=== PATIENT | male | born 1945 | race Caucasian/White ===

== ENCOUNTER 2019-08-01 10:41 | Day surgery (SDC) | payer MEDICARE, OTHER ==
[2019-07-31 11:21] LABS: EOSINOPHILS # (AUTO) 0.3 X10'3 (0-0.9); MEAN CORPUSCULAR HEMOGLOBIN 33.6 PG (27.0-31.0); NEUTROPHILS # (AUTO) 2.9 X10'3 (1.8-7.7); PRE OP HEMOGLOBIN 13.1 g/dL (14.0-17.9)
[2019-07-31 11:23] LABS: BASOPHILS % (AUTO) 0.3 % (0-1); EOSINOPHILS % (AUTO) 2.5 % (0-6); LYMPHOCYTES # (AUTO) 9.6 X10'3 (1.1-4.8); LYMPHOCYTES % (AUTO) 72.8 % (21-51); MEAN CORPUSCULAR HGB CONC 34.1 g/dL (33.0-36.5); MEAN CORPUSCULAR VOLUME 98.6 FL (78-98); MONOCYTES # (AUTO) 0.3 X10'3 (0-0.9); MONOCYTES % (AUTO) 2.2 % (2-12); NEUTROPHILS % (AUTO) 22.2 % (42-75); PRE OP HEMATOCRIT 38.4 % (42.0-52.0); PRE OP PLATELET COUNT 172 X10'3 (140-440); RED CELL DISTRIBUTION WIDTH 14.1 % (11.5-14.5)
[2019-07-31 11:27] LABS: ALBUMIN 2.9 G/DL (3.4-5.0); ALBUMIN/GLOBULIN RATIO 0.9 (1.1-1.5); ALKALINE PHOSPHATASE 105 IU/L (46-116); BLOOD UREA NITROGEN 13 MG/DL (7-18); BUN/CREATININE RATIO 16.3 (5.4-32.0); CHLORIDE 108 MMOL/L (99-107); PRE OP ALT 12 U/L (30-65); PRE OP ANION GAP 4 (8-16); PRE OP AST 18 U/L (10-37); PRE OP BILIRUB, TOTAL 0.3 MG/DL (0.0-1.0); PRE OP GLUCOSE 79 MG/DL (70-104); PRE OP POTASSIUM 4.4 MMOL/L (3.4-5.1); PRE OP SODIUM 140 MMOL/L (135-145); TOTAL CARBON DIOXIDE 27.9 MMOL/L (24-32); TOTAL PROTEIN 6.2 G/DL (6.4-8.2); eGFR > 90 ML/MIN
[2019-07-31 12:35] LABS: NUCLEATED RED BLOOD CELLS 1 /100WBC (0-0); TOTAL CELLS COUNTED 100
[2019-07-31 12:38] LABS: PLATELET ESTIMATE NORMAL; SMUDGE CELLS 2+
[2019-08-01] VITALS (10 sets, daily range): BP systolic 125–144; BP diastolic 58–78
[~2019-08-01] VITALS: Ht 190.5 cm; Wt 83.9 kg
[~2019-08-01 10:41] MED LIST: ASPI81TA52 PO; ATOR10TA70 PO; AZAT50TA7 PO; CLOP75TA35 PO; DOCUMENT DATE & TIME OF BETA-BLOCKER PO ONE; GLUC-95 PO; LEVO75TA7 PO; METO-384 PO; MULT-1141 PO; PANT40TA4 PO; TACR1CAP28 PO; TRIA0.2585 PO; cefazolin/dext.iso 2gm/50ml 50 ML IV ONE; famotidine 20mg tablet PO ONE; ringers solution, lacted 1,000 ML IV SCH
[2019-08-01] MEDS ORDERED: BUPIVAcaine/PF 2.5 mg/ml (0.25%) 30ml vial ONE (12:43)
[2019-08-01] MEDS ORDERED: LIDOcaine 0.5% (5mg/ml) 50ml vial ONE (14:03)
[2019-08-01] MEDS ORDERED: fentaNYL/PF 50MCG/1 ML 2ML syringe ONE (14:05)
[2019-08-01] MEDS ORDERED: MIDAZolam 1mg/ml 10ml vial ONE (14:05)
--- NOTE | 2019-08-01 14:10 | NUR ---
PT HAS BILATERAL LOWER LEG PROSTHESES, HIS ACTUAL WEIGHT IS 80KG AND HEIGHT IS 5'2" Addendum: 08/01/19 at 1432 by Elana Khoury RN Amended: Links added.
[2019-08-01] MEDS ORDERED: ringers solution, lacted 1,000 ML IV SCH (14:33)
[2019-08-01] MEDS ORDERED: fentaNYL/PF 50MCG/1 ML 2ML syringe IV PRN ×2 (14:35)
[2019-08-01] MEDS ORDERED: hydrALAZINE 20mg/ml inj. IV PRN (14:35)
[2019-08-01] MEDS ORDERED: ondansetron/PF 4mg/2ml inj IV PRN (14:35)
[2019-08-01] MEDS ORDERED: labetalol 20mg/4ml (5mg/ml) syringe IV PRN (14:35)
[2019-08-01] MEDS ORDERED: morphine 4 MG/ML inj SYRINge IV PRN (14:35)
[2019-08-01] MEDS ORDERED: morphine 2 MG/ML inj. syringe IV PRN (14:35)
--- NOTE | 2019-08-01 14:49 | NUR ---
Received from OR via [facility], accompanied by Anesthesiologist CITLALY and report given by Anesthesiolgist. PT DROWSY, OXYGENATING WELL ON 10 LPM O2 VIA MASK, NO RESP DISTRESS NOTED. DENIES NAUSEA OR PAIN AT THIS TIME, HAD A DANA BLOCK TO R HAND. BULKY DSG WITH RUSSELL BANDAGE, CDI. GOOD MOTION IN REMAINING FINGERS ON R HAND. VSS.
--- NOTE | 2019-08-01 16:19 | NUR ---
PT HAS NO PAIN, VSS. TOLERATING PO FLUIDS WELL. DC INSTRUCTIONS EXPLAINED TO PT AND HIS , THEY VERBALIZED UNDERSTANDING. DCD IN STABLE CONDITION, TAKEN TO CAR VIA WC.
== END 2019-08-01 16:19 | disposition home or self-care (01) ==
LOC: PAS 10:41
PROVIDERS: ATTEND Orthopaedic Surgery Hand Surgery
DX: M86.641 Other chronic osteomyelitis, right hand (principal); E11.52 Type 2 diabetes mellitus with diabetic peripheral angiopathy with gangrene; I96 Gangrene, not elsewhere classified; I25.10 Atherosclerotic heart disease of native coronary artery without angina pectoris; I10 Essential (primary) hypertension; Z98.890 Other specified postprocedural states; Z89.512 Acquired absence of left leg below knee; Z89.511 Acquired absence of right leg below knee; Z95.5 Presence of coronary angioplasty implant and graft; Z79.899 Other long term (current) drug therapy; Z72.89 Other problems related to lifestyle
CPT/HCPCS: 26951; 36415; 80053; 82948; 85025; 93005; J2001; J2250; J3010; J3490; J7120; A4618; A6446; A6449; A7000

== ENCOUNTER 2020-07-09 06:28 | Day surgery (SDC) | payer MEDICARE, OTHER ==
[2020-07-05 10:44] LABS: MEAN CORPUSCULAR HGB CONC 33.7 g/dL (33.0-36.5); MONOCYTES # (AUTO) 0.2 X10'3 (0-0.9); NEUTROPHILS # (AUTO) 1.3 X10'3 (1.8-7.7); RED BLOOD COUNT 3.49 X10'6 (4.70-6.10)
[2020-07-05 10:45] LABS: BASOPHILS % (AUTO) 0.2 % (0-1); EOSINOPHILS # (AUTO) 0.4 X10'3 (0-0.9); EOSINOPHILS % (AUTO) 3.1 % (0-6); LYMPHOCYTES # (AUTO) 11.9 X10'3 (1.1-4.8); LYMPHOCYTES % (AUTO) 86.2 % (21-51); MEAN CORPUSCULAR HEMOGLOBIN 34.4 PG (27.0-31.0); MEAN CORPUSCULAR VOLUME 101.9 FL (78-98); MONOCYTES % (AUTO) 1.4 % (2-12); NEUTROPHILS % (AUTO) 9.1 % (42-75); PRE OP HEMATOCRIT 35.6 % (42.0-52.0); PRE OP PLATELET COUNT 145 X10'3 (140-440); RED CELL DISTRIBUTION WIDTH 13.7 % (11.5-14.5)
[2020-07-05 10:58] LABS: PRE OP INR 1.1 INR; PRE OP PROTIME 11.3 SECONDS (9.0-12.0)
[2020-07-05 10:59] LABS: ALBUMIN 3.1 G/DL (3.4-5.0); ALBUMIN/GLOBULIN RATIO 1.1 (1.1-1.5); ALKALINE PHOSPHATASE 110 IU/L (46-116); BLOOD UREA NITROGEN 14 MG/DL (7-18); BUN/CREATININE RATIO 18.9 (5.4-32.0); CALCIUM 8.6 MG/DL (8.5-10.1); CHLORIDE 109 MMOL/L (99-107); CREATININE 0.74 MG/DL (0.60-1.10); PRE OP ALT 13 U/L (30-65); PRE OP ANION GAP 6 (8-16); PRE OP AST 17 U/L (10-37); PRE OP BILIRUB, TOTAL 0.5 MG/DL (0.0-1.0); PRE OP GLUCOSE 103 MG/DL (70-104); PRE OP POTASSIUM 4.2 MMOL/L (3.4-5.1); PRE OP SODIUM 141 MMOL/L (135-145); TOTAL CARBON DIOXIDE 26.4 MMOL/L (24-32); TOTAL PROTEIN 5.8 G/DL (6.4-8.2); eGFR > 90 ML/MIN
[2020-07-05 11:31] LABS: TOTAL CELLS COUNTED 200
[2020-07-05 11:32] LABS: IMMATURE CELLS 0 % (0-0); PLATELET ESTIMATE NORMAL; SMUDGE CELLS 2+
[2020-07-05 11:34] LABS: ELLIPTOCYTES FEW; STOMATOCYTES FEW; TEAR DROP CELLS FEW
[2020-07-09] VITALS (8 sets, daily range): BP systolic 102–125; BP diastolic 60–65
[~2020-07-09] VITALS: Ht 190.5 cm; Wt 83.1 kg
[~2020-07-09 06:28] MED LIST changes: +CLOP75TA34 PO; -CLOP75TA35 PO; -PANT40TA4 PO; +PANT40TA54 PO; +TACR1CAP24 PO; -TACR1CAP28 PO; +ceFAZolin 2gm in dextrose, iso 50 ML IV ONE; -cefazolin/dext.iso 2gm/50ml 50 ML IV ONE
[2020-07-09] MEDS ORDERED: morphine 2 MG/ML inj. syringe IV PRN (08:30)
[2020-07-09] MEDS ORDERED: morphine 4 MG/ML inj SYRINge IV PRN (08:30)
[2020-07-09] MEDS ORDERED: proCHLORperazine 10 MG/2 ml inj IV PRN (08:30)
[2020-07-09] MEDS ORDERED: meperidine/PF 25mg/ml syringe IV PRN ×3 (08:30)
[2020-07-09] MEDS ORDERED: ondansetron/PF 4mg/2ml inj IV PRN (08:30)
[2020-07-09] MEDS ORDERED: ringers solution, lacted 1,000 ML IV SCH (08:30)
[2020-07-09] MEDS ORDERED: LIDOcaine 0.5% (5mg/ml) 50ml vial ONE (09:19)
[2020-07-09] MEDS ORDERED: BUPIVAcaine/PF 2.5mg/ml (0.25%) 10ml vial ONE (10:06)
[2020-07-09] MEDS ORDERED: fentaNYL/PF 50MCG/1 ML 2ML syringe ONE (10:10)
[2020-07-09] MEDS ORDERED: midazolam 2 mg/2 ml injection ONE (10:10)
[2020-07-09] MEDS ORDERED: propofol inj 20 ML IV ONE (10:36)
--- NOTE | 2020-07-09 10:50 | NUR ---
Received from OR via [facility], accompanied by Anesthesiologist BRIAN and report given by Anesthesiolgist. VSS. IV PATENT. NO HAND PAIN, BUT HAD A LEG CRAMP WHICH IS NORMAL FOR HIM. MOVING FINGERS BUT STATES HAND IS NUMB STILL.
--- NOTE | 2020-07-09 11:20 | NUR ---
DOING VERY WELL. IV OUT. READIED FOR DC.
== END 2020-07-09 12:08 | disposition home or self-care (01) ==
LOC: PAS 06:28
PROVIDERS: ATTEND Orthopaedic Surgery Hand Surgery
DX: G56.02 Carpal tunnel syndrome, left upper limb (principal); G56.22 Lesion of ulnar nerve, left upper limb; G62.9 Polyneuropathy, unspecified; Z95.5 Presence of coronary angioplasty implant and graft; Z98.890 Other specified postprocedural states; K21.9 Gastro-esophageal reflux disease without esophagitis; Z94.0 Kidney transplant status; Z94.83 Pancreas transplant status; Z79.01 Long term (current) use of anticoagulants; Z82.49 Family history of ischemic heart disease and other diseases of the circulatory system; Z79.899 Other long term (current) drug therapy
CPT/HCPCS: 36415; 64721; 80053; 82948; 85025; 85610; 85730; 87635; 93005; J2001; J2250; J2704; J3010; J3490; 85007; A4215; J7120

== ENCOUNTER 2020-08-20 05:38 | Day surgery (SDC) | payer MEDICARE, OTHER ==
[2020-08-13 14:26] LABS: MEAN CORPUSCULAR HGB CONC 33.3 g/dL (33.0-36.5); PRE OP HEMATOCRIT 36.5 % (42.0-52.0); PRE OP HEMOGLOBIN 12.2 g/dL (14.0-17.9)
[2020-08-13 14:27] LABS: BASOPHILS % (AUTO) 0.3 % (0-1); EOSINOPHILS # (AUTO) 0.3 X10'3 (0-0.9); EOSINOPHILS % (AUTO) 2.1 % (0-6); LYMPHOCYTES # (AUTO) 11.1 X10'3 (1.1-4.8); MEAN CORPUSCULAR HEMOGLOBIN 33.7 PG (27.0-31.0); MEAN PLATELET VOLUME 7.1 FL (7.4-10.4); MONOCYTES # (AUTO) 0.2 X10'3 (0-0.9); MONOCYTES % (AUTO) 1.6 % (2-12); PRE OP PLATELET COUNT 122 X10'3 (140-440); RED BLOOD COUNT 3.61 X10'6 (4.70-6.10); RED CELL DISTRIBUTION WIDTH 13.8 % (11.5-14.5)
[2020-08-13 14:38] LABS: ALBUMIN 3.2 G/DL (3.4-5.0); ALBUMIN/GLOBULIN RATIO 1.2 (1.1-1.5); ALKALINE PHOSPHATASE 114 IU/L (46-116); BLOOD UREA NITROGEN 14 MG/DL (7-18); BUN/CREATININE RATIO 20.9 (5.4-32.0); CALCIUM 8.9 MG/DL (8.5-10.1); CHLORIDE 105 MMOL/L (99-107); CREATININE 0.67 MG/DL (0.60-1.10); PRE OP ALT 16 U/L (30-65); PRE OP ANION GAP 7 (8-16); PRE OP AST 22 U/L (10-37); PRE OP BILIRUB, TOTAL 0.6 MG/DL (0.0-1.0); PRE OP GLUCOSE 92 MG/DL (70-104); PRE OP POTASSIUM 4.3 MMOL/L (3.4-5.1); PRE OP SODIUM 138 MMOL/L (135-145); TOTAL CARBON DIOXIDE 26.2 MMOL/L (24-32); TOTAL PROTEIN 5.9 G/DL (6.4-8.2); eGFR > 90 ML/MIN
[2020-08-13 15:20] LABS: PLATELET ESTIMATE DECREASED; POLYCHROMASIA 1+; SMUDGE CELLS 2+; TOTAL CELLS COUNTED 100
[~2020-08-20] VITALS: Ht 190.5 cm; Wt 84.0 kg
[2020-08-20] MEDS ORDERED: LIDOcaine 1% (10mg/ml) 2ml vial ONE (06:05)
[2020-08-20] MEDS ORDERED: BUPIVAcaine/PF 2.5mg/ml (0.25%) 10ml vial ONE (06:47)
[2020-08-20] MEDS ORDERED: LIDOcaine 0.5% (5mg/ml) 50ml vial ONE (07:07)
[2020-08-20] MEDS ORDERED: midazolam 1 mg/ML 2ml injection ONE (07:09)
[2020-08-20] MEDS ORDERED: fentaNYL/PF 50MCG/1 ML 2ML syringe ONE (07:09)
[2020-08-20] MEDS ORDERED: proCHLORperazine 10 MG/2 ml inj IV PRN (07:15)
[2020-08-20] MEDS ORDERED: ringers solution, lacted 1,000 ML IV SCH (07:15)
[2020-08-20] MEDS ORDERED: ondansetron/PF 4mg/2ml inj IV PRN (07:15)
[2020-08-20] MEDS ORDERED: meperidine/PF 25mg/ml syringe IV PRN ×3 (07:15)
[2020-08-20] MEDS ORDERED: morphine 2 MG/ML inj. syringe IV PRN (07:15)
[2020-08-20] MEDS ORDERED: morphine 4 MG/ML inj SYRINge IV PRN (07:15)
[2020-08-20 07:25] VITALS: BP 124/66
[2020-08-20 07:31] VITALS: BP 124/66
[2020-08-20 07:50] VITALS: BP 126/66
--- NOTE | 2020-08-20 07:50 | NUR ---
Received from OR via [facility] , accompanied by Anesthesiologist CARINA and report given by Anesthesiolgist. PT. ALERT AND AWAKE, VSS ON ROOM AIR. R. SURGICAL SITE DRESSING AT WRIST/HAND CDI. ICE PLACED AT SITE. ARM RESTING ON PILLOW. PT. DENIES PAIN. ABLE TO FEEL SENSATION AND MOVE FINGERS IN R. HAND. PULSES AND SENSATION NOTED AT ALL EXTREMITIES. IV IN L. AC 18 G WITH LR INFUSING. CDI. Addendum: 08/20/20 at 0811 by Sydni Robles RN Amended: Links added.
[2020-08-20 08:00] VITALS: BP 123/63
[2020-08-20 08:10] VITALS: BP 128/71
--- NOTE | 2020-08-20 08:24 | NUR ---
PT. DISCHARGED TO SPOUSE AT FRONT ENTRANCE VIA WC TO PRIVATE CAR ACCOMPANIED BY NURSE.. VSS. DENIES PAIN. R. WRIST/HAND DRESSING CDI. IV REMOVED. CATHETER INTACT. NO REDNESS NOTED. PT. ABLE TO TRANSFER SELF TO VEHICLE. EDUCATION/DC INSTRUCTIONS GIVEN. PT. VERBALIZES UNDERSTANDING. ALL DISCHARGE CRITERIA MET. Addendum: 08/20/20 at 0658 by Sydni Robles RN Amended: Links added.
[2020-08-20] MEDS ORDERED: BUPIVAcaine/PF 2.5mg/ml (0.25%) 10ml vial IJ ONE (14:08)
== END 2020-08-20 08:25 | disposition home or self-care (01) ==
LOC: PAS 05:38
PROVIDERS: ATTEND Orthopaedic Surgery Hand Surgery
DX: G56.01 Carpal tunnel syndrome, right upper limb (principal); G62.9 Polyneuropathy, unspecified; M86.8X4 Other osteomyelitis, hand; Z98.890 Other specified postprocedural states; Z89.512 Acquired absence of left leg below knee; Z89.511 Acquired absence of right leg below knee; Z94.83 Pancreas transplant status; Z79.899 Other long term (current) drug therapy; Z94.0 Kidney transplant status; Z20.822 Contact with and (suspected) exposure to COVID-19
CPT/HCPCS: 36415; 64721; 80053; 82948; 85025; J2001; J2250; J3010; J3490; U0003; 85007; A4215; J7120